=== PATIENT | male | born 1940 | race Caucasian/White ===

== ENCOUNTER 2017-02-20 10:57 | Day surgery (SDC) | payer MEDICARE ==
[2017-02-20] VITALS (8 sets, daily range): BP systolic 133–160; BP diastolic 62–73; PULSE 70–91; TEMP 98.5–99.4
[~2017-02-20] VITALS: Ht 165.1 cm; Wt 83.8 kg
[2017-02-20] MEDS ORDERED: NIACIN1000 MG PO (11:55)
[2017-02-20] MEDS ORDERED: ZOCOR 20MG20 MG PO (11:56)
[2017-02-20] MEDS ORDERED: TOPROL XL 50MG50 MG PO (11:56)
[2017-02-20] MEDS ORDERED: NIACIN500 M4 PO (11:56)
[2017-02-20] MEDS ORDERED: UROXATRAL10 M1 PO (11:57)
[2017-02-20] MEDS ORDERED: ASPIRIN 32325 MG/TAB PO (11:57)
[2017-02-20] MEDS ORDERED: NEURONTIN300 MG/CAP PO (11:58)
[2017-02-20] MEDS ORDERED: HCTZ 25MG TAB25 MG PO (11:58)
[2017-02-20] MEDS ORDERED: ZYLOPRIM 300MG300 MG PO (11:59)
[2017-02-20] MEDS ORDERED: DETROL LA4 PO (12:00)
[2017-02-20] MEDS ORDERED: NORCO 325 MG-51 TAB PO (14:50)
[2017-02-20] MEDS ORDERED: SENNA8.6 MG PO (14:51)
[2017-02-20] MEDS ORDERED: PYRIDIUM 100MG100 MG PO (14:51)
== END 2017-02-20 17:31 | disposition home or self-care (01) ==
LOC: SDCO 10:57
DX: N28.89 Other specified disorders of kidney and ureter (principal); R31.0 Gross hematuria; R33.9 Retention of urine, unspecified; I12.9 Hypertensive chronic kidney disease with stage 1 through stage 4 chronic kidney disease, or unspecified chronic kidney disease; N18.9 Chronic kidney disease, unspecified; E78.00 Pure hypercholesterolemia, unspecified; I25.2 Old myocardial infarction; K21.9 Gastro-esophageal reflux disease without esophagitis; M19.90 Unspecified osteoarthritis, unspecified site; Z95.5 Presence of coronary angioplasty implant and graft; Z96.641 Presence of right artificial hip joint; Z87.891 Personal history of nicotine dependence; Z83.3 Family history of diabetes mellitus; Z80.1 Family history of malignant neoplasm of trachea, bronchus and lung; Z80.42 Family history of malignant neoplasm of prostate
CPT/HCPCS: C1769; J0690; J1100; J2405; J2704; J3010; J7120; Q9967

== ENCOUNTER 2017-03-07 09:02 | Inpatient (IN) | payer MEDICARE ==
[~2017-03-07] VITALS: Ht 165.1 cm; Wt 80.1 kg
[~2017-03-07 09:02] MED LIST: ASPIRIN 32325 MG/TAB PO; DETROL LA4 PO; HCTZ 25MG TAB25 MG PO; NEURONTIN300 MG/CAP PO; NIACIN1000 MG PO; NIACIN500 M4 PO; NORCO 325 MG-51 TAB PO; PYRIDIUM 100MG100 MG PO; SENNA8.6 MG PO; TOPROL XL 50MG50 MG PO; UROXATRAL10 M1 PO; ZOCOR 20MG20 MG PO; ZYLOPRIM 300MG300 MG PO
[2017-03-22] VITALS (11 sets, daily range): BP systolic 110–141; BP diastolic 40–61; PULSE 57–87; TEMP 97.2–97.5
[2017-03-22] MEDS ORDERED: HCTZ12.5TAB PO (11:55)
[2017-03-23 02:02] VITALS: BP 115/52; PULSE 84; TEMP 97.5
[2017-03-23 05:27] VITALS: BP 110/49; PULSE 76; TEMP 97.5
[2017-03-23 07:14] LABS: BASO % 0.1 % (0.0-2.0); GRAN # 9.7 (1.4-6.5); GRAN % 89.8 % (42.2-75.2); LYMPH # 0.6 (1.2-3.4); LYMPH % 5.2 % (20.0-51.0); MEAN CELL VOLUME 96 fl (80.0-100.0); MEAN CORPUSCULAR HGB CONC 31 g/dl (33.0-37.0); MEAN PLATELET VOLUME 9.6 fl (7.4-10.4); MONO # 0.4 (0.1-0.6); MONO % 4.1 % (1.7-9.3); PLATELET COUNT 107 K/mm3 (130-400); RED BLOOD COUNT 3.42 M/mm3 (4.20-5.60); REDCELL DISTRIBUTION WIDTH-CV 15.7 % (11.5-14.5); WHITE BLOOD COUNT 10.8 K/mm3 (4.8-10.8)
[2017-03-23 07:24] LABS: HEMOGLOBIN 10.3 g/dl (13.5-18.0); MEAN CORPUSCULAR HEMOGLOBIN 30 pg (27.0-31.0)
[2017-03-23 07:25] LABS: HEMATOCRIT 32.9 % (42.0-52.0)
[2017-03-23 07:28] LABS: CALCIUM 8.9 mg/dL (8.4-10.2); CREATININE, serum 2.46 mg/dL (0.66-1.25); POTASSIUM 5.6 mmol/L (3.4-5.0)
[2017-03-23 09:16] VITALS: BP 120/51; PULSE 80; TEMP 97.9
[2017-03-23 13:50] VITALS: BP 136/50; PULSE 87; TEMP 98.7
[2017-03-23 17:41] VITALS: BP 142/55; PULSE 64; TEMP 97.7
[2017-03-23 21:37] VITALS: BP 120/61; PULSE 74; TEMP 99.6
[2017-03-24 01:13] VITALS: BP 154/62; PULSE 65; TEMP 98
[2017-03-24 05:37] VITALS: BP 122/54; PULSE 70; TEMP 98.2
[2017-03-24 06:58] LABS: CALCIUM 9.1 mg/dL (8.4-10.2); CREATININE, serum 2.74 mg/dL (0.66-1.25); POTASSIUM 4.2 mmol/L (3.4-5.0)
[2017-03-24 09:05] VITALS: BP 149/53; PULSE 66; TEMP 98.1
[2017-03-24 09:30] VITALS: BP 149/53; PULSE 66; TEMP 98.1
== END 2017-03-24 10:15 | DRG 658 ==
LOC: SURG 03-22 09:53 → OR 03-22 09:53 → SURG 03-22 13:00
PROVIDERS: Urology
PROC: 0WQF4ZZ Repair Abdominal Wall, Percutaneous Endoscopic Approach (ICD-10-PCS; 2017-03-22)
PROC: 8E0W4CZ Robotic Assisted Procedure of Trunk Region, Percutaneous Endoscopic Approach (ICD-10-PCS; 2017-03-22)
PROC: 0TT14ZZ Resection of Left Kidney, Percutaneous Endoscopic Approach (ICD-10-PCS; principal; 2017-03-22 13:00)
DX: C64.2 Malignant neoplasm of left kidney, except renal pelvis (principal); I12.9 Hypertensive chronic kidney disease with stage 1 through stage 4 chronic kidney disease, or unspecified chronic kidney disease; N18.9 Chronic kidney disease, unspecified; Z95.5 Presence of coronary angioplasty implant and graft; Z87.891 Personal history of nicotine dependence; R31.0 Gross hematuria; K42.9 Umbilical hernia without obstruction or gangrene
CPT/HCPCS: A4315; A9284; J0690; J1100; J2370; J2405; J2550; J2704; J3010; J7030

== ENCOUNTER 2017-08-04 06:25 | Day surgery (SDC) | payer MEDICARE ==
[~2017-08-04] VITALS: Ht 165.1 cm; Wt 81.7 kg
[~2017-08-04 06:25] MED LIST changes: +HCTZ12.5TAB PO
[2017-08-04 07:10] VITALS: BP 157/78; PULSE 60; TEMP 96.8
[2017-08-04 08:35] VITALS: BP 146/74; PULSE 60; TEMP 96.9
[2017-08-04 08:45] VITALS: BP 151/82; PULSE 64
[2017-08-04 09:00] VITALS: BP 165/84; PULSE 66
== END 2017-08-04 09:24 | disposition home or self-care (01) ==
LOC: SDCO 06:25
DX: K57.30 Diverticulosis of large intestine without perforation or abscess without bleeding (principal); Z79.82 Long term (current) use of aspirin; I12.9 Hypertensive chronic kidney disease with stage 1 through stage 4 chronic kidney disease, or unspecified chronic kidney disease; N18.9 Chronic kidney disease, unspecified; I25.10 Atherosclerotic heart disease of native coronary artery without angina pectoris; Z95.5 Presence of coronary angioplasty implant and graft; Z90.5 Acquired absence of kidney; D69.6 Thrombocytopenia, unspecified; Z80.1 Family history of malignant neoplasm of trachea, bronchus and lung; Z80.42 Family history of malignant neoplasm of prostate; Z80.9 Family history of malignant neoplasm, unspecified; Z85.528 Personal history of other malignant neoplasm of kidney; M10.9 Gout, unspecified; I25.2 Old myocardial infarction; E78.00 Pure hypercholesterolemia, unspecified; Z68.30 Body mass index [BMI] 30.0-30.9, adult; Z87.891 Personal history of nicotine dependence; Z96.641 Presence of right artificial hip joint; K21.9 Gastro-esophageal reflux disease without esophagitis; D64.9 Anemia, unspecified; M19.90 Unspecified osteoarthritis, unspecified site
CPT/HCPCS: OP; J0461; J2704; J7030